=== PATIENT | female | born 1960 | race Caucasian/White ===

== ENCOUNTER → 2021-05-03 | Outpatient (CLI) | payer OTHER ==
[~2021-05-03] MED LIST: LIPITOR 80MG80 MG PO; NICODERM C14 MG/PATC TD; NO HOME MEDICATIONS; NORVASC 10MG10 MG PO; PLAVIX 75MG TAB75 MG PO; ZESTRIL 10MG10 MG PO; ZOLOFT 50MG50 MG PO
== END ==
LOC: COL.RAD 14:11
DX: S70.02XA Contusion of left hip, initial encounter (principal); K57.30 Diverticulosis of large intestine without perforation or abscess without bleeding

== ENCOUNTER 2024-01-04 05:48 | Inpatient (IN) | payer BC ==
[2024-01-04] VITALS (7 sets, daily range): BP systolic 166–182; BP diastolic 82–89; PULSE 80–87; TEMP 97.4–98.2
[~2024-01-04] VITALS: Ht 167.6 cm; Wt 48.8 kg
[~2024-01-04 05:48] MED LIST changes: +BIOTIN5000 MCG PO; +LIPITOR20 MG PO; +PHARMASSURE ZIN50 MG PO; +ZOLOFT 100MG100 MG PO
[2024-01-04] MEDS ORDERED: NS 1,000 ML IV ONE (06:00)
[2024-01-04 06:01] LABS: BASO # 0.1 K/mm3 (0.0-0.2); BASO % 0.6 % (0.0-2.0); EOS # 0.1 K/mm3 (0.0-0.7); EOS % 0.4 % (0.0-4.0); GRAN # 9.8 K/mm3 (1.4-6.5); GRAN % 77.5 % (42.2-75.2); HEMATOCRIT 42.2 % (37.0-47.0); HEMOGLOBIN 14.4 g/dl (12.5-16.0); LYMPH # 1.9 K/mm3 (1.2-3.4); LYMPH % 14.7 % (20.0-51.0); MEAN CELL VOLUME 97 fl (80.0-100.0); MEAN CORPUSCULAR HEMOGLOBIN 33 pg (27-31); MEAN CORPUSCULAR HGB CONC 34 g/dl (33.0-37.0); MEAN PLATELET VOLUME 8.8 fl (7.4-10.4); MONO # 0.8 K/mm3 (0.1-0.6); MONO % 6.3 % (1.7-9.3); PLATELET COUNT 426 K/mm3 (130-400); RED BLOOD COUNT 4.37 M/mm3 (4.10-5.30); REDCELL DISTRIBUTION WIDTH-CV 13.2 % (11.5-14.5)
[2024-01-04 06:06] LABS: PROTHROMBIN TIME 10.6 SECONDS (9.7-12.8)
[2024-01-04] MEDS ORDERED: Iohexol 350 - 100 ML VIAL IV ONE (06:09)
[2024-01-04] MEDS ORDERED: NS 64 ML IV SCH (06:09)
[2024-01-04 06:21] LABS: ALBUMIN 3.9 g/dL (3.4-4.8); BILIRUBIN,TOTAL 0.4 mg/dL (0.2-1.2); CALCIUM 9.2 mg/dL (8.4-10.2); CREATININE, serum 0.55 mg/dL (0.57-1.11); POTASSIUM 3.7 mEq/L (3.5-4.5)
[2024-01-04 07:05] LABS: COLLECTION METHOD IN
[2024-01-04 07:24] LABS: PH 7.5 (5.0-8.5); URINE APPEARANCE CLEAR (CLEAR/HAZY); URINE BLOOD TRACE (NEGATIVE); URINE COLOR YELLOW (YELLOW); URINE GLUCOSE NEGATIVE (NEGATIVE); URINE KETONE NEGATIVE (NEGATIVE); URINE NITRATE POSITIVE (NEGATIVE); URINE PROTEIN(semi-quant) NEGATIVE (NEGATIVE); URINE UROBILINOGEN 0.2 E.U/dL (0.2-1.0)
[2024-01-04 07:46] LABS: TRICYCLIC ANTIDEPRESS URINE NEGATIVE (NEGATIVE)
[2024-01-04] MEDS ORDERED: Atorvastatin 40 MG TAB PO ONE (08:00)
[2024-01-04] MEDS ORDERED: cefTRIAXone 1 G in Water For Injection,Sterile 10 ML IV SCH (08:00)
[2024-01-04] MEDS ORDERED: Clopidogrel 75 MG TAB PO ONE (08:00)
[2024-01-04] MEDS ORDERED: COZAAR 50MG50 MG/TAB PO (08:07)
[2024-01-04] MEDS ORDERED: *Potassium Replacement Protocol MC SCH (08:30)
--- NOTE | 2024-01-04 08:45 | NUR ---
Patient up to medical floor from ED. Left sided weakness noted, greater in arm than leg. Left sided facial drooping noted. Daughter at the bedside. Patient endorses poor appetite, denies pain. Aware of plan of care. Bed in lowest position with call light within reach, fall precautions in place.
[2024-01-04 09:21] LABS: CHOLESTEROL RISK RATIO 2.4
--- NOTE | 2024-01-04 11:53 | NUR ---
Critical MRI result called to Dr. Neri.
[2024-01-04] MEDS ORDERED: Clopidogrel 300 MG DOSE (75 mg x 4 tabs) PO ONE (12:15)
--- NOTE | 2024-01-04 15:42 | NUR ---
Machine Shop Helper met with patient and her daughter, Yusef (ph#[phone]) to discuss discharge planning. Patient lives in [place] and sees Dr. Williamson for primary care. Patient gets medciations from [facility] and normally does not use any DME. Patient is normally independent with ADLS. Patient reported she has DPOA-HC designating her daughter, Yusef. SW discussed therapy's recommendation for IPR and patient is interested in this program. SW contacted IPR Director, Aliyah to give referral. Discharge Plan: IPR screen
[2024-01-05] VITALS (8 sets, daily range): BP systolic 160–182; BP diastolic 82–93; PULSE 82–92; TEMP 97.5–98.1
[2024-01-05 06:50] LABS: BASO # 0.1 K/mm3 (0.0-0.2); EOS # 0.2 K/mm3 (0.0-0.7); EOS % 1.9 % (0.0-4.0); GRAN # 6.4 K/mm3 (1.4-6.5); GRAN % 71.5 % (42.2-75.2); HEMATOCRIT 43.7 % (37.0-47.0); HEMOGLOBIN 15.3 g/dl (12.5-16.0); LYMPH # 1.5 K/mm3 (1.2-3.4); LYMPH % 16.3 % (20.0-51.0); MEAN CELL VOLUME 94 fl (80.0-100.0); MEAN CORPUSCULAR HEMOGLOBIN 33 pg (27-31); MEAN CORPUSCULAR HGB CONC 35 g/dl (33.0-37.0); MONO # 0.8 K/mm3 (0.1-0.6); MONO % 8.9 % (1.7-9.3); PLATELET COUNT 445 K/mm3 (130-400); RED BLOOD COUNT 4.65 M/mm3 (4.10-5.30); REDCELL DISTRIBUTION WIDTH-CV 13.1 % (11.5-14.5)
--- NOTE | 2024-01-05 06:55 | NUR ---
Pt laying n bed. Denies needs at this time. Call light in reach and bed alarm on.
[2024-01-05 07:08] LABS: ALBUMIN 3.7 g/dL (3.4-4.8); CALCIUM 9.6 mg/dL (8.4-10.2); CREATININE, serum 0.61 mg/dL (0.57-1.11); PHOSPHOROUS 2.9 mg/dL (2.3-4.7); POTASSIUM 3.6 mEq/L (3.5-4.5)
[2024-01-05] MEDS ORDERED: Atorvastatin 40 MG TAB PO SCH (07:11)
[2024-01-05] MEDS ORDERED: Potassium Bicarbonate/Citrate 20 MEQ Effervescent TAB PO SCH (08:15)
--- NOTE | 2024-01-05 08:50 | NUR ---
fire range technician called and reported Pt's HR increased to 130s. Pt working with PT. Pt's HR returned to NSR after PT session completed.
[2024-01-05] MEDS ORDERED: Clopidogrel 75 MG TAB PO SCH (09:00)
--- NOTE | 2024-01-05 09:46 | NUR ---
Pt laying in bed. A&Ox4. VSS. S1S2. Clear lungs on RA. ABD round, soft, non-tender with audible bowel sounds. Palpable pulses with good strength. Pt denies n/v, headache, dizziness. Call light in reach and bed alarm on.
--- NOTE | 2024-01-05 10:57 | NUR ---
ISABELL notified by attending that patient is stable for transfer to [facility] today. ISABELL contacted Sindy with [facility] to notify of discharge. Discharge plan: [facility]
[2024-01-05] MEDS ORDERED: LIPITOR 40MG TA40 MG PO (12:20)
[2024-01-05] MEDS ORDERED: PLAVIX 75MG TAB75 MG PO (12:20)
--- NOTE | 2024-01-05 12:41 | NUR ---
Report called to OSMAN Alonso. Pt removed from tele monitor. INT discontinued from R AC. Pressure bandage in place. Pt transported to room 336 on IPR by PCT.
[2024-01-10] MEDS ORDERED: PLAVIX 75MG TAB75 MG PO (08:15)
[2024-01-10] MEDS ORDERED: LIPITOR 40MG TA40 MG PO (08:15)
[2024-01-10] MEDS ORDERED: COZAAR100 MG PO (08:16)
[2024-01-10] MEDS ORDERED: NICODERM C21 MG/PATC TD (08:40)
== END 2024-01-05 12:43 | DRG 66 ==
LOC: COL.ER 05:48 → MEDICAL 07:53
PROVIDERS: Emergency Medicine; ADMIT Internal Medicine
DX: I63.9 Cerebral infarction, unspecified (principal); I10 Essential (primary) hypertension; F32.A Depression, unspecified; F17.200 Nicotine dependence, unspecified, uncomplicated
CPT/HCPCS: A4314; J0696; J1650; J7030; Q3014; Q9967